=== PATIENT | female | born 1960 | race Caucasian/White ===

== ENCOUNTER 2019-07-02 01:56 | Outpatient (CLI) | payer OTHER, SELFPAY ==
--- NOTE | 2019-07-02 | DI.RAD_ITS ---
EXAM: XR HAND LT LIMITED CLINICAL HISTORY: bilat hand pain, disability determination, TECHNIQUE: COMPARISON: XR HAND RT LIMITED from 07/02/2019 FINDINGS: Two views were obtained. There appears to be subluxation proximal phalanx of the index finger on 2nd metacarpal as well as marked subluxation of proximal phalanx of the thumb on 1st metacarpal head and probably also mild subluxation at the 3rd MCP joint. Mild degenerative changes noted involving the IP joints. Marked degenerative changes noted at the greater multangular 1st metacarpal joint. There may be mild periarticular demineralization of the MCP joints. IMPRESSION: Degenerative changes involving IP joints and greater multangular 1st metacarpal joint, question eason es of rheumatoid arthritis involving MCP joints. Please correlate clinically.
--- NOTE | 2019-07-02 | DI.RAD_ITS ---
EXAM: XR LUMBAR SPINE AP, LAT CLINICAL HISTORY: LOW BACK PAIN, DISABILITY DETERMINATION, ID CONFIRMED BY PHOTO ID TECHNIQUE: Three views were obtained. COMPARISON: No exams were available for comparison FINDINGS: There is prominent osteophyte formation at the SI joints with fairly good preservation of the joint s paces bilaterally. There is marked loss of the intervertebral disc height from L2-3 through L5-S1 wi th prominent endplate sclerotic changes at these levels. There is vacuum disc phenomenon at L3-4 and L4-5 consistent with disc degeneration as well. Very prominent hypertrophic endplate and facet mahajan ges noted. Mild pseudospondylolisthesis of L3 on L4 noted. Slight retrolisthesis of L4 on L5 noted. IMPRESSION: Severe degenerative changes of the lumbar spine as described above. Slight biconvex thoracolumbar sc oliosis noted. Moderate degenerative changes of SI joints noted as well, predominantly hypertrophic.
--- NOTE | 2019-07-02 | DI.RAD_ITS ---
EXAM: XR HAND RT LIMITED CLINICAL HISTORY: BILAT HAND PAIN, DISABILITY DETERMINATION TECHNIQUE: COMPARISON: XR HAND LT LIMITED from 07/02/2019 FINDINGS: Two views were obtained. There is deformity of the multangular approximation navicular to 1st metaca rpal base, correlation requested regarding regarding any prior surgery. There appear to be cysts subluxations the 2nd through 4th MCP joints. There is periarticular deminer alization. There is slight narrowing of the cartilaginous joint spaces of the IP joints and degenera tive marginal osteophyte formation appears to be present at the PIP joint of the little finger. IMPRESSION: Significant bony deformities as described above involving purpose and the 2nd through 4th MCP joints, correlation with history of rheumatoid arthritis or other arthritic condition requested.
== END 2019-07-02 02:16 ==
PROVIDERS: PCP Nurse Practitioner Family; Visit Provider Pediatrics Pediatric Rheumatology
DX: M54.5 Low back pain (principal); M53.3 Sacrococcygeal disorders, not elsewhere classified; M51.37 Other intervertebral disc degeneration, lumbosacral region; Z02.71 Encounter for disability determination; M79.641 Pain in right hand; M79.642 Pain in left hand; M20.091 Other deformity of right finger(s); M20.092 Other deformity of left finger(s); M19.041 Primary osteoarthritis, right hand; M19.042 Primary osteoarthritis, left hand; M18.11 Unilateral primary osteoarthritis of first carpometacarpal joint, right hand; M18.12 Unilateral primary osteoarthritis of first carpometacarpal joint, left hand
CPT/HCPCS: 72100; 73120